=== PATIENT | female | born 1955 | race Caucasian/White ===

== ENCOUNTER 2019-05-25 14:04 | Outpatient (CLI) | payer OTHER ==
[2018-12-18 19:35] VITALS: BP 161/96
--- NOTE | 2019-06-19 10:07 | Diagnostic Imaging Report ---
MAC FLETCHER [facility] [id number] [facility].[address] [id number] Report Submission Date: May 25, 2019 2:19:59 PM CDT Patient Study Name: CALEB ARMANDO Date: May 25, 2019 1:59:07 PM CDT Modality Type: DX Gender: F Description: KNEE 3 VIEWS : 57 Institution: [facility] Physician: MAC FLETCHER Right knee 3 views History: Right knee pain Findings: No fracture or malalignment or bony lesion. No joint effusion. Joint space is preserved. Impression: Normal Electronically signed on May 25, 2019 2:19:59 PM CDT by: Edilson LUQUE
== END 2019-05-25 14:10 ==
LOC: RAD 14:04
PROVIDERS: ATTEND Family Medicine
DX: M25.561 Pain in right knee (principal)
CPT/HCPCS: 73562

== ENCOUNTER 2019-06-07 10:04 | Outpatient (CLI) | payer OTHER ==
[2018-12-18 19:35] VITALS: BP 161/96
--- NOTE | 2019-06-12 14:14 | CONSULTATION REPORT ---
DATE OF CONSULTATION: 06/07/2019 CHIEF COMPLAINT: Right knee pain. HISTORY OF PRESENT ILLNESS: This 64-year-old white female is seen reporting that she wants to see an orthopedic doctor for her right knee. She sees Dr. Octavia Bhandari for routine primary care needs in the [facility]. The patient indicates the right knee has been hurting for about three months, most notably. She says it started hurting when she walked up a big hill, just started aching the next day. She does report the pain is intermittent. She is unable to take nonsteroidal medications routinely because of irritable bowel syndrome as well as gastroesophageal reflux disease. She does take Tylenol, however. She says the pain is in the front and inside the knee and sometimes diffusely or allover. She describes quality of the pain as aching, dull, tight, moderate in severity and worsening. She says her pain at rest is mild and is severe at times with activity. She does report the knee pain is worse with activity, weightbearing, pivoting, climbing stairs, descending stairs, squatting, kneeling, rising after sitting, putting on shoes and socks. The knee pain is better with ice and Tylenol and nonsteroidal medications when she has taken them, has tried ibuprofen, but does not take it routinely. Rest also helps the knee to feel better. Pain has progressed with activities of daily living. She does not have night pain and the knee does not awaken her at night. She does not report a fear of falling. She has experienced some episodes of locking, catching, and clicking in that knee. She indicates she ambulates with mild difficulty, uses an elastic knee sleeve, has for the last three months. She bought this on her own and says it does help some. She does not narcotic pain medication for that knee. She has tried Aleve as well as ibuprofen. She does not take any narcotics or has had any steroid or other type of injections. She has taken glucosamine orally. She has not done any physical therapy. She has not tried a weight loss program. Her BMI is 26.92 today. She does indicate that she occasionally has tingling down the lower extremities, more on the right than the left, which she attributes to sciatica. She does report back pain. She has x-rays of her right knee which were obtained earlier this month, and she says she was told that she did not have anything major show up on those. PAST MEDICAL/SURGICAL HISTORY: The patient does have past medical history of some kidney problems, but denies kidney failure, kidney stones or any surgery for the kidney or kidney disease. She does report no history of knee surgery. She did undergo a debridement for right forearm injury from a dog bite earlier this year, says that she has done well from that, but has a little trouble with volar flexion of the right wrist since then. SOCIAL HISTORY: She denies nicotine usage currently. She did smoke in the past, quit in 1983 after smoking approximately one pack per day for eight years. She does not use alcohol, denies history of alcohol abuse. She denies illicit drug use, abuse, or history of same. 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 Occasionally her right knee would bother her cleaning houses over the previous 20 years prior to when the knee started hurting more three months ago. ALLERGIES: The patient indicates allergy to some pain medications, which she says are for stomach problem. Her current medications are listed on current medications/allergies as part of her intake sheet which is signed and included on her record, as is social history, family history, surgical history, medical history/review of systems. She does report a history of skin cancer, colitis, depression, hypoglycemia, irritable bowel, heartburn/reflux. PHYSICAL EXAMINATION: The vital signs are recorded, revealing temperature 97.6, respirations 16, blood pressure 130/90, the pulse is 89. The patient is 5 feet 3 inches in height, weight of 152 pounds, calculated BMI of 26.92. She rates her pain currently as 3-4/10, right knee. HEENT normocephalic. Neck supple. Lungs are clear to percussion bilaterally. Cardiovascular regular rate and rhythm. Abdomen soft, nontender. Extremities, the patient has full range of motion of the left knee. No ligamentous instability. No effusion. Symmetric quadriceps strength and tone is noted to gross exam, both lower extremities. The patient does have no crepitus on range of motion of left knee. There is palpable nontender superomedial synovial shaft/plica bilaterally. The patient does have some mild crepitus on patellofemoral compression while flexing and extending the right knee. There is no apprehension on attempting lateral patellofemoral subluxation on the right. The patient has negative Arthur, negative anterior/posterior drawer on the right. She has trace effusion on the right, does fully extend that knee and flexes it to 120 degrees, near symmetric with the left knee. I did note the patient ambulates with a mild limp. She does have tenderness over the medial joint line. This does not extend distally over the pes region. There is no gross opening or discomfort on valgus stress while flexing or extending the knee and there is negative Kwame test. I did note intact gross motor sensory exam both lower extremities, dorsiflexing and plantarflexing the ankles and toes well bilaterally. There is good capillary refill distally both lower extremities. Pulses are present and symmetric posterior tibialis bilaterally. X-RAYS: I reviewed the films of the right knee, AP lateral and tangential patellar views. These were noted to reveal very minimal degenerative changes suggested with some mild flattening of the femoral condylar surface medially, some early peaking of the tibial spines, but good femorotibial joint space preservation and good alignment of the patellofemoral articular surfaces noted on the tangential patellar view. No acute bony abnormalities are evident. Findings suggest mild osteoarthritic disease with patellofemoral and medial compartments most affected. Interestingly, the patient does report having undergone rheumatoid testing which was negative, she adds, the test undertaken as part of the workup for her irritable bowel disease, she states. IMPRESSION: 1. Probable mild osteoarthritic right knee with medial and patellofemoral compartments most affected. 2. Irritable bowel syndrome with gastroesophageal reflux disease. PLAN: Options discussed with the patient, I offered her a therapy program for rehab, and she is going to proceed with that. She does not have significant stiffness, but there is some mild tightness in the hamstrings and gastrocsoleus bilaterally. I believe the stretching and flexibility exercises may be of benefit for her. In addition, I outlined to her expectations, limitations given her diagnosis, and I recommend activity modification so as to avoid aggravating activities. I also recommended consideration of an injection in the knee which she declines at this point. I did discuss the pros and cons, and she is going to consider that if the knee does not settle down, is going to call back for an appointment for same. The patient is advised that if she is not improving in six to eight weeks, then we would be happy to see her back and we can talk about options for further evaluation and treatment, such as pursuing an MRI of that right knee. She is going to try some topicals for the knee, and I answered her questions to her voiced satisfaction. She voices satisfaction with today's visit and is, of course, going to continue to avoid taking nonsteroidal medications which are poorly tolerated. Sincerely, Ryley Puente MD /Tawanda [id number] Job #[id number] cc: Octavia Bhandari M.D. MTDD
== END 2019-06-07 11:05 ==
LOC: OUT 10:04
PROVIDERS: ATTEND Orthopaedic Surgery
DX: K58.9 Irritable bowel syndrome, unspecified (principal); K21.9 Gastro-esophageal reflux disease without esophagitis
CPT/HCPCS: 99202